=== PATIENT | male | born 2000 | race Caucasian/White ===

== ENCOUNTER 2022-03-06 19:25 | Emergency (ER) | payer BC, MEDICAID, OTHER | END 2022-03-06 21:30 | disposition home or self-care (01) | LOC: JD.ED 19:25 | DX: S02.5XXA Fracture of tooth (traumatic), initial encounter for closed fracture (principal); S99.912A Unspecified injury of left ankle, initial encounter; F17.210 Nicotine dependence, cigarettes, uncomplicated; Y04.0XXA Assault by unarmed brawl or fight, initial encounter; Y99.0 Civilian activity done for income or pay | CPT/HCPCS: 73610-26-LT; 73610-LT; 99283; 99284 ==

== ENCOUNTER 2022-04-04 22:15 | Emergency (ER) | payer OTHER ==
[2022-04-04] MEDS ORDERED: Sodium Chloride 0.9% 1,000 ML IV ONE ×3 (22:20→23:00)
[2022-04-04] MEDS ORDERED: Tranexamic Acid 1,000 MG in Sodium Chloride 0.9% 100 ML IV STA ×2 (22:46→23:12)
[2022-04-04] MEDS ORDERED: Sodium Chloride 0.9% 3,000 ML ONE (22:49)
[2022-04-04] MEDS ORDERED: Rocuronium 50 MG/5 ML Vial IVPUSH ONE (22:49)
[2022-04-04 23:02] LABS: ESTIMATED GFR 88 mL/min (>60)
[2022-04-05] MEDS ORDERED: EPINEPHrine 1:10,000 1 MG/10 ML Syringe IVPUSH ONE ×2 (00:13→00:25)
[2022-04-05] MEDS ORDERED: Iopamidol 612 MG/ML 100 ML Bottle IVPUSH ONE (00:34)
[2022-04-05] MEDS ORDERED: Iopamidol 612 MG/ML 50 ML SDV IVPUSH ONE (00:34)
[2022-04-05] MEDS ORDERED: Norepinephrine 4 MG in Dextrose 5% in Water 246 ML IV SCH ×2 (03:45)
== END 2022-04-05 00:40 ==
LOC: EDBD 22:15 → MERGE 22:15 → JD.ED 22:15
DX: S02.40DA Maxillary fracture, left side, initial encounter for closed fracture (principal); S22.32XA Fracture of one rib, left side, initial encounter for closed fracture; S22.018A Other fracture of first thoracic vertebra, initial encounter for closed fracture; S22.028A Other fracture of second thoracic vertebra, initial encounter for closed fracture; S12.9XXA Fracture of neck, unspecified, initial encounter; S14.109A Unspecified injury at unspecified level of cervical spinal cord, initial encounter; S01.81XA Laceration without foreign body of other part of head, initial encounter; F10.129 Alcohol abuse with intoxication, unspecified; R57.9 Shock, unspecified; Y90.0 Blood alcohol level of less than 20 mg/100 ml; V53.5XXA Driver of pick-up truck or van injured in collision with car, pick-up truck or van in traffic accident, initial encounter; Y92.410 Unspecified street and highway as the place of occurrence of the external cause
CPT/HCPCS: 31500; 36415; 36600; 43752; 51702; 70450; 70486; 71045; 71260; 72125; 72128; 72131; 74177; 80053; 80306; 80307; 81003; 82150; 82803; 83605; 85007; 85027; 85610; 85730; 86850; 86900; 86901; 86922; 92950; 96361; 96374; 96376; 99291; 99292; G0390; J0171; J7030; J7060; P9016; P9017; Q9967